=== PATIENT | male | born 1995 | race Caucasian/White ===

== ENCOUNTER 2018-04-11 20:58 | Inpatient (IN) | payer OTHER ==
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
--- NOTE | 2018-04-11 21:59 | RAD ---
Indication: Head injury. CT of the brain was performed without IV contrast. Ventricular structures are midline. No midline shift is noted. There are multiple small hyperdense areas in the right frontal lobe and right temporal lobe consistent with intraparenchymal hematomas. Additional hematoma is noted in the left frontal and left temporal lobe. Small amount of subarachnoid hemorrhage is noted. No intraventricular hemorrhage is noted. Posterior fossa is otherwise unremarkable. Mastoid air cells and paranasal sinuses are otherwise unremarkable. No evidence of calvarial fracture is noted. IMPRESSION: Multiple right-sided intraparenchymal hematomas involving the right temporal lobe and right frontal lobe the largest measuring approximately 1.5 cm. Left frontal and temporal intraparenchymal hematoma measuring 12 mm is noted likely representing contrecoup injury. No intraventricular hemorrhage is noted. There may be a small amount of subarachnoid blood in the left temporal lobe. Merle DEL CASTILLO was notified of the results.
[2018-04-11 22:25] LABS: ABS Basophils 0 10^3/ul (0-0.2); ABS Eosinophils 0.1 10^3/ul (0-0.6); ABS Lymphocytes 1.3 10^3/ul (1.0-4.8); ABS Monocytes 0.8 10^3/ul (0-0.8); ABS Neutrophils 6.3 10^3/ul (1.5-7.7); ABS Nucleated RBC 0 10^3/ul; Eosinophil % 0.9 % (0-6); Hematocrit 49 % (42-52); Hemoglobin 17.1 g/dl (14.0-18.0); Lymphocyte % 14.9 % (25-47); Mean Corpuscular HGB Conc 35 g/dl (31-36); Mean Corpuscular Hemoglobin 30 pg (27-31); Mean Corpuscular Volume 86 fL (80-94); Mean Platelet Volume 9.9 um3 (7.4-10.4); Nucleated Red Blood Cells % 0.1; Platelet Count 142 10^3/ul (150-450); Red Blood Count 5.68 10^6/ul (4.0-5.4); Red Cell Distribution Width 13 % (10.5-15); White Blood Count 8.4 10^3/ul (3.5-10.8)
[2018-04-11 22:49] LABS: EGFR Non-African American 102.4 (>60)
[2018-04-11] MEDS ORDERED: HYDROcodone/ACETAMIN 5-325 MG* 1 TAB PO PRN (23:40)
[2018-04-11] MEDS ORDERED: Magnesium Hydroxide LIQ* 30 ML UDC PO PRN (23:40)
[2018-04-11] MEDS ORDERED: Ondansetron 40 MG VIAL* 2 MG/ML 20 ML VIAL IV PRN (23:40)
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
[2018-04-12] MEDS: Acetaminophen TAB* 325 MG PO PRN (08:07)
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
--- NOTE | 2018-04-12 09:23 | RAD ---
INDICATION: Follow-up multifocal intraparenchymal hematomas following head trauma COMPARISON: CT the brain April 11, 2018 TECHNIQUE: Contiguous axial sections of the brain were obtained from the skull base to the vertex without contrast. Coronal and sagittal reformats were created and reviewed. FINDINGS: Again seen are multifocal hyperattenuating foci of hemorrhage involving the right frontal and temporal lobes and to a lesser extent the left temporal lobe. The largest foci of hemorrhage is at the lateral aspect of the right frontal lobe measuring 1.5 cm essentially unchanged from yesterday's CT examination. At the lateral aspect of the right temporal lobe there is a focus of hemorrhage measuring 1.1 cm slightly increased from 1 cm on the previous CT of the brain. At the left temporal lobe the largest focus of hyperattenuating hemorrhage measures 1.2 cm, not significantly changed from yesterday CT of the brain. There is no new foci of hemorrhage. There is no discernible mass effect including midline shift or intracranial herniation. There is no hyperattenuating blood seen in the ventricles. There is no calvarial fracture identified. The visualized portion of the paranasal sinuses appear clear. The mastoid air cells are well aerated bilaterally. IMPRESSION: Again seen are multiple foci of parenchymal hemorrhage involving the right frontal and temporal lobes and to a lesser extent the left temporal lobe. There has been no substantial change since the previous day head CT. There is no discernible mass effect including midline shift or intracranial herniation.
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
[2018-04-13] MEDS: Acetaminophen TAB* 325 MG PO PRN ×4 (00:09→23:38)
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
[2018-04-14 03:44] VITALS: BP 98/65
[2018-04-14] MEDS: Acetaminophen TAB* 325 MG PO PRN (06:06)
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
== END 2018-04-14 09:15 | disposition home or self-care (01) | DRG 84 ==
LOC: ED 20:58 → ICU 04-12 00:24 → OBSVTOIN 04-12 09:31 → SSU 04-13 11:15
PROVIDERS: ADMIT Neurological Surgery; ATTEND Neurological Surgery
DX: S06.339A Contusion and laceration of cerebrum, unspecified, with loss of consciousness of unspecified duration, initial encounter (principal); V18.0XXA Pedal cycle driver injured in noncollision transport accident in nontraffic accident, initial encounter; Y93.55 Activity, bike riding; Y92.410 Unspecified street and highway as the place of occurrence of the external cause; R51 Headache
CPT/HCPCS: 36415; 70450; 72125; 80053; 80320; 85025; 87641; 99284; A9270-GY; G0480